=== PATIENT | male | born 1995 | race Two or more races ===

== ENCOUNTER 2022-12-19 03:59 | Inpatient (IN) | payer OTHER ==
[~2022-12-19] VITALS: Ht 157.5 cm; Wt 67.1 kg
[2022-12-19] MEDS ORDERED: KETOROLAC TROMETHAMINE 30 MG/ML VIAL IV STA (04:20)
[2022-12-19] MEDS ORDERED: FAMOTIDINE 20 MG/2 ML VIAL IV STA (04:20)
[2022-12-19] MEDS ORDERED: SODIUM CHLORIDE 0.9% 1000ML 1,000 ML IV ONE (04:30)
[2022-12-19] MEDS ORDERED: IOPAMIDOL 610MG/1ML 300 MG/ML VIAL IV ONE (04:34)
[2022-12-19] MEDS ORDERED: SODIUM CHLORIDE 0.9% 1000ML 1,000 ML ONE (04:37)
[2022-12-19] MEDS ORDERED: KETOROLAC TROMETHAMINE 30 MG/ML VIAL ONE ×2 (04:37→12:11)
[2022-12-19] MEDS ORDERED: FAMOTIDINE 20 MG/2 ML VIAL IV ONE (04:38)
[2022-12-19] MEDS ORDERED: PIPERACILLIN/TAZOBACTAM 3.375 GM VIAL ONE (05:26)
[2022-12-19] MEDS ORDERED: Morphine 2mg Syringe 2 MG/ML SYR IV PRN (05:45)
[2022-12-19] MEDS ORDERED: D5.45%NS/KCL 20MEQ 1,000 ML IV SCH (05:45)
[2022-12-19 08:26] VITALS: BP 124/85; PULSE 76; RESP 19; TEMP 98.3; O2SAT 100
[2022-12-19 08:30] VITALS: BP 136/75; PULSE 76; RESP 19; TEMP 98.3; O2SAT 100
[2022-12-19 08:34] VITALS: BP 124/85; PULSE 76; RESP 19; TEMP 98.3; O2SAT 100
[2022-12-19 08:37] VITALS: BP 124/85; PULSE 76; RESP 19; TEMP 98.3; O2SAT 100
[2022-12-19] MEDS: DEXTROSE 5%/0.45% SOD CHL 1,000 ML IV SCH (11:48)
[2022-12-19] MEDS ORDERED: LIDOCAINE HCL 2% LOCAL INJ 5 ML SDV VIAL INJ ONE (12:11)
[2022-12-19] MEDS ORDERED: DEXAMETHASONE SOD PHOS INJ 4 MG/ML SDV ONE (12:11)
[2022-12-19] MEDS ORDERED: POVIDONE IODINE 0.05% 0.05 % ML PO ONE (12:11)
[2022-12-19] MEDS ORDERED: ONDANSETRON HCL INJ 2MG/ML 2ML 2 MG/ML VIAL ONE (12:11)
[2022-12-19] MEDS ORDERED: PROPOFOL IV EMULSION 10 MG/ML 20 ML VIAL ONE (12:11)
[2022-12-19] MEDS ORDERED: SEVOFLURANE INHAL SOLN 250 ML PEN BTL ONE (12:11)
[2022-12-19] MEDS ORDERED: ROCURONIUM BROMIDE 10 MG/ML 5ML VIAL IV ONE (12:11)
[2022-12-19] MEDS ORDERED: FENTANYL CITRATE/PF 100MCG/2 ML INJ ONE (12:53)
[2022-12-19] MEDS ORDERED: MIDAZOLAM HCL 2 MG/2 ML VIAL ONE (12:53)
[2022-12-19 13:07] VITALS: BP 117/72; PULSE 70; RESP 18; TEMP 98.8; O2SAT 97
[2022-12-19] MEDS ORDERED: BUPIVACAINE 0.5%/EPI 30 ML SDV INJ ONE (13:13)
[2022-12-19] MEDS: FAMOTIDINE 20 MG/2 ML VIAL IV SCH (17:34)
[2022-12-19 20:00] VITALS: BP_SYST 123; BP_SYST 99; BP_DIAS 59; BP_DIAS 68; PULSE 69; PULSE 74; RESP 16; RESP 20; TEMP 97.6; TEMP 98.5; O2SAT 100; O2SAT 99
[2022-12-20] VITALS (8 sets, daily range): BP systolic 95–112; BP diastolic 61–76; PULSE 58–72; RESP 17–20; TEMP 97.5–99.4; O2SAT 98–100
[2022-12-20] MEDS: DEXTROSE 5%/0.45% SOD CHL 1,000 ML IV SCH ×3 (00:07→23:52)
[2022-12-20 08:32] LABS: BASOPHILS % 0.1 % (0.0-1.0); EOSINOPHILS % 0.1 % (0.0-6.0); HEMATOCRIT 42.7 % (38.2-49.6); HEMOGLOBIN 14.2 g/dL (14.0-18.0); LYMPHOCYTES # (AUTO) 2.4 (1.0-3.2); LYMPHOCYTES % 15.4 % (18.0-39.1); MEAN CORPUSCULAR HEMOGLOBIN 30.7 pg (28-32); MEAN CORPUSCULAR HGB CONC 33.3 g/dL (31-35); MEAN CORPUSCULAR VOLUME 92.2 fL (81-99); MONOCYTES # (AUTO) 1.1 (0.2-0.8); MONOCYTES % 7.1 % (4.4-11.3); NEUTROPHILS # (AUTO) 11.9 (2.1-6.9); NEUTROPHILS % 76.9 % (38.7-80.0); PLATELET COUNT 291 x10e3/uL (140-360); RED BLOOD COUNT 4.63 x10e6/uL (4.3-5.7); RED CELL DISTRIBUTION WIDTH 11.7 % (11.7-14.4)
[2022-12-20] MEDS: FAMOTIDINE 20 MG/2 ML VIAL IV SCH ×2 (08:35→16:07)
[2022-12-20 09:20] LABS: ANION GAP 10.6 mmol/L (8-16); CALCIUM 8.9 mg/dL (8.4-10.2); POTASSIUM 3.6 mmol/L (3.5-5.1)
[2022-12-20 10:02] LABS: PHOSPHORUS 2.9 MG/DL (2.3-4.7)
[2022-12-20] MEDS: ONDANSETRON HCL INJ 2MG/ML 2ML 2 MG/ML VIAL IV PRN (16:07)
[2022-12-20] MEDS: Morphine 4mg INJECTION 4 MG/ML INJ IV PRN (16:08)
[2022-12-21] VITALS (7 sets, daily range): BP systolic 108–119; BP diastolic 69–81; PULSE 59–73; RESP 16–20; TEMP 97.7–98.9; O2SAT 98–100
[2022-12-21 05:16] LABS: BASOPHILS % 0.3 % (0.0-1.0); EOSINOPHILS # (AUTO) 0.1 (0.0-0.4); EOSINOPHILS % 1.1 % (0.0-6.0); HEMOGLOBIN 13.4 g/dL (14.0-18.0); LYMPHOCYTES # (AUTO) 3.1 (1.0-3.2); LYMPHOCYTES % 25.7 % (18.0-39.1); MEAN CORPUSCULAR HEMOGLOBIN 30.6 pg (28-32); MEAN CORPUSCULAR HGB CONC 32.7 g/dL (31-35); MEAN CORPUSCULAR VOLUME 93.6 fL (81-99); MONOCYTES # (AUTO) 1.1 (0.2-0.8); MONOCYTES % 9.3 % (4.4-11.3); NEUTROPHILS # (AUTO) 7.5 (2.1-6.9); NEUTROPHILS % 63.3 % (38.7-80.0); PLATELET COUNT 276 x10e3/uL (140-360); RED BLOOD COUNT 4.38 x10e6/uL (4.3-5.7); RED CELL DISTRIBUTION WIDTH 11.7 % (11.7-14.4)
[2022-12-21 05:35] LABS: ANION GAP 10.7 mmol/L (8-16); CALCIUM 8.9 mg/dL (8.4-10.2); CREATININE, SERUM 1.21 mg/dL (0.72-1.25); MAGNESIUM 1.9 MG/DL (1.3-2.1); PHOSPHORUS 3.3 MG/DL (2.3-4.7); POTASSIUM 3.7 mmol/L (3.5-5.1)
[2022-12-21] MEDS ORDERED: TYLENOL325 MG PO (05:35)
[2022-12-21] MEDS ORDERED: SENOKOT8.6 MG PO (05:35)
[2022-12-21] MEDS ORDERED: METRONIDAZOLE500 MG PO (05:35)
[2022-12-21] MEDS ORDERED: CEPHALEXIN500 MG PO (05:35)
[2022-12-21] MEDS ORDERED: ULTRAM 50MG50 MG PO (05:35)
[2022-12-21] MEDS: Morphine 4mg INJECTION 4 MG/ML INJ IV PRN (08:04)
[2022-12-21] MEDS: ONDANSETRON HCL INJ 2MG/ML 2ML 2 MG/ML VIAL IV PRN (08:04)
[2022-12-21] MEDS: FAMOTIDINE 20 MG/2 ML VIAL IV SCH (09:11)
[2022-12-21] MEDS ORDERED: ONDANSETRON HCL 4 MG ORAL DISINTEGRATING TAB PO PRN (12:30)
[2022-12-21] MEDS ORDERED: ACETAMIN-CODE12.5 ML PO (14:17)
[2022-12-21] MEDS: FAMOTIDINE 20 MG TAB PO SCH (16:16)
[2022-12-21] MEDS: DEXTROSE 5%/0.45% SOD CHL 1,000 ML IV SCH (17:30)
[2022-12-22] VITALS (8 sets, daily range): BP systolic 106–122; BP diastolic 73–85; PULSE 61–92; RESP 16–20; TEMP 97.3–98.2; O2SAT 98–100
[2022-12-22] MEDS ORDERED: ACETAMINOPHEN-1 EAC3 PO (04:51)
[2022-12-22] MEDS: DEXTROSE 5%/0.45% SOD CHL 1,000 ML IV SCH ×2 (06:13→22:36)
[2022-12-22 07:37] LABS: BASOPHILS % 0.3 % (0.0-1.0); EOSINOPHILS # (AUTO) 0.2 (0.0-0.4); EOSINOPHILS % 2.5 % (0.0-6.0); HEMATOCRIT 45.4 % (38.2-49.6); LYMPHOCYTES # (AUTO) 2.4 (1.0-3.2); LYMPHOCYTES % 29.9 % (18.0-39.1); MEAN CORPUSCULAR HEMOGLOBIN 30.9 pg (28-32); MEAN CORPUSCULAR VOLUME 93.6 fL (81-99); MONOCYTES # (AUTO) 0.7 (0.2-0.8); MONOCYTES % 8.9 % (4.4-11.3); NEUTROPHILS # (AUTO) 4.6 (2.1-6.9); NEUTROPHILS % 58.3 % (38.7-80.0); PLATELET COUNT 334 x10e3/uL (140-360); RED BLOOD COUNT 4.85 x10e6/uL (4.3-5.7); RED CELL DISTRIBUTION WIDTH 11.6 % (11.7-14.4)
[2022-12-22 08:12] LABS: ANION GAP 14.9 mmol/L (8-16); CALCIUM 9.5 mg/dL (8.4-10.2); CREATININE, SERUM 1.03 mg/dL (0.72-1.25); POTASSIUM 3.9 mmol/L (3.5-5.1)
[2022-12-22] MEDS: FAMOTIDINE 20 MG TAB PO SCH ×2 (09:35→17:28)
[2022-12-23] VITALS (7 sets, daily range): BP systolic 96–118; BP diastolic 62–80; PULSE 56–68; RESP 18–19; TEMP 97.1–98.1; O2SAT 98–100
[2022-12-23] MEDS: DEXTROSE 5%/0.45% SOD CHL 1,000 ML IV SCH (08:20)
[2022-12-23] MEDS: FAMOTIDINE 20 MG TAB PO SCH ×2 (09:34→17:40)
[2022-12-24] VITALS: BP 88/56; PULSE 61; RESP 18; TEMP 97; O2SAT 100
[2022-12-24 05:39] VITALS: BP 99/64; PULSE 61; RESP 19; TEMP 97.6; O2SAT 100
[2022-12-24 08:18] VITALS: BP 115/65; PULSE 65; RESP 20; TEMP 98.1; O2SAT 99
[2022-12-24] MEDS: FAMOTIDINE 20 MG TAB PO SCH (09:30)
[2022-12-24 09:33] VITALS: BP 115/65; PULSE 65; RESP 20; TEMP 98.1; O2SAT 99
[2022-12-24 11:39] LABS: BASOPHILS % 0.4 % (0.0-1.0); EOSINOPHILS # (AUTO) 0.2 (0.0-0.4); HEMOGLOBIN 16.7 g/dL (14.0-18.0); LYMPHOCYTES # (AUTO) 2.4 (1.0-3.2); LYMPHOCYTES % 25.8 % (18.0-39.1); MEAN CORPUSCULAR HGB CONC 32.7 g/dL (31-35); MEAN CORPUSCULAR VOLUME 91.6 fL (81-99); MONOCYTES # (AUTO) 0.6 (0.2-0.8); MONOCYTES % 6.4 % (4.4-11.3); NEUTROPHILS # (AUTO) 6.1 (2.1-6.9); NEUTROPHILS % 65.1 % (38.7-80.0); PLATELET COUNT 451 x10e3/uL (140-360); RED BLOOD COUNT 5.57 x10e6/uL (4.3-5.7); RED CELL DISTRIBUTION WIDTH 11.3 % (11.7-14.4)
[2022-12-24 11:54] LABS: ANION GAP 13.3 mmol/L (8-16); CALCIUM 10.1 mg/dL (8.4-10.2); CREATININE, SERUM 1.09 mg/dL (0.72-1.25); MAGNESIUM 2.2 MG/DL (1.3-2.1); PHOSPHORUS 3.1 MG/DL (2.3-4.7); POTASSIUM 4.3 mmol/L (3.5-5.1)
[2022-12-24 12:01] VITALS: BP 125/77; PULSE 72; RESP 18; TEMP 98.1; O2SAT 98
== END 2022-12-24 14:51 | disposition home or self-care (01) | DRG 331 ==
LOC: FSED 04:12 → ERHOLD 05:51 → MED/SURG 07:58
PROVIDERS: ADMIT Internal Medicine; ATTEND Internal Medicine
PROC: 0DTJ4ZZ Resection of Appendix, Percutaneous Endoscopic Approach (ICD-10-PCS; 2022-12-19)
PROC: 0DBH4ZZ Excision of Cecum, Percutaneous Endoscopic Approach (ICD-10-PCS; principal; 2022-12-19 13:43)
DX: K35.33 Acute appendicitis with perforation, localized peritonitis, and gangrene, with abscess (principal); Z20.822 Contact with and (suspected) exposure to COVID-19
CPT/HCPCS: 0223U; 36415; 74177; 80048; 80076; 81003; 83735; 84100; 85025; 88304; 99284; J1100; J1885; J2001; J2250; J2270; J2405; J2543; J7030